=== PATIENT | male | born 1970 | race Caucasian/White ===

== ENCOUNTER 2021-07-19 15:31 | Emergency (ER) | payer SELFPAY ==
[2021-07-19] MEDS ORDERED: Ketorolac Tromethamine 30 MG/ML VIAL ONE (16:14)
== END 2021-07-19 18:33 | disposition home or self-care (01) ==
LOC: ERS 15:31
DX: S83.91XA Sprain of unspecified site of right knee, initial encounter (principal); M79.7 Fibromyalgia; V89.2XXA Person injured in unspecified motor-vehicle accident, traffic, initial encounter; Y92.410 Unspecified street and highway as the place of occurrence of the external cause
CPT/HCPCS: 96372; J1885